=== PATIENT | male | born 1985 | race Caucasian/White ===

== ENCOUNTER 2022-02-05 09:28 | Observation (INO) ==
[2022-02-05] MEDS ORDERED: 0.9 % Sodium Chloride 1,000 ML IVC ONE (10:38)
[2022-02-05 11:03] LABS: Basophils % 0.1 %; Eosinophils % 0.1 %; Hematocrit 47.4 % (37.5-50.1); Immature Granulocytes % 0.4 % (0-4); Lymphocytes % 6.6 %; Mean Corpuscular HGB Conc 33.8 g/dL (31.6-35.5); Mean Corpuscular Volume 91.9 fL (83.0-100.0); Mean Platelet Volume 11.4 fL (9.4-12.4); Monocytes # 1.1 K/mcL (0.0-1.3); Monocytes % 7.1 %; Neutrophils # 13.6 K/mcL (1.6-8.9); Platelet Count 218 K/mcL (140-400); Red Blood Count 5.16 M/mcL (4.19-5.50); Segmented Neutrophils % 85.7 %; White Blood Count 15.9 K/mcL (4.3-11.1)
[2022-02-05 11:22] LABS: BUN/Creatinine Ratio 12 (6-26); Blood Urea Nitrogen 10 mg/dL (6-20); Carbon Dioxide 27 mEq/L (23-29); Chloride 102 mEq/L (98-107); Glucose 123 mg/dL (70-105); Osmolality,Calculated 284 (280-300); Potassium 3.6 mEq/L (3.5-5.1); Sodium 137 mEq/L (136-145); eGFR For African Americans > 60 (> 60); eGFR For Non-African Americans > 60 (> 60)
[2022-02-05] MEDS ORDERED: Iopamidol - 370 500 ML MLS IVP ONE (11:31)
[2022-02-05 11:53] LABS: Influenza A PCR Negative (Negative); Influenza B PCR Negative (Negative); Resp. Syncytial Virus PCR Negative (Negative); SARS-CoV-2 by PCR (In House) Negative (Negative)
[2022-02-05] MEDS ORDERED: Ampicillin/Sulbactam 3,000 MG in 0.9 % Sodium Chloride Mini Bag 100 ML IVPB ONE (13:39)
[2022-02-05] MEDS ORDERED: Dexamethasone Sodium Phos/PF 10 MG/ML VIAL IVP ONE (13:40)
[2022-02-05] MEDS ORDERED: Lidocaine/EPI 1:100k 1% 50 ML VIAL ONE (14:39)
[2022-02-05] MEDS ORDERED: *HR* Propofol 200 MG/20 ML VIAL IVP ONE ×2 (17:04→17:46)
[2022-02-05] MEDS ORDERED: *HR* FentaNYL (PF) 100 MCG/2 ML VIAL ONE ×2 (17:04→17:56)
[2022-02-05] MEDS ORDERED: *HR* Midazolam HCl 2 MG/2 ML VIAL ONE (17:04)
[2022-02-05] MEDS ORDERED: *HR* Succinylcholine 200 MG/10 ML VIAL IVP ONE (17:06)
[2022-02-05] MEDS ORDERED: Ondansetron 4 MG/2 ML VIAL ONE (17:06)
[2022-02-05] MEDS ORDERED: Lidocaine -MPF 2% 5 ML VIAL ONE (17:06)
[2022-02-05] MEDS ORDERED: Lidocaine HCL 4 ML Topical Solution (Laryng-O-Jet Kit Sterile Pak) TP ONE (17:06)
[2022-02-05] MEDS ORDERED: *HR* HYDROmorphone PF 0.5 MG/0.5 ML SYRINGE IVP PRN (17:07)
[2022-02-05] MEDS ORDERED: Ondansetron 4 MG/2 ML VIAL IVP PRN ×2 (17:07→19:59)
[2022-02-05] MEDS ORDERED: *HR* Rocuronium Bromide 50 MG/5 ML VIAL ONE (17:07)
[2022-02-05] MEDS ORDERED: *HR* FentaNYL (PF) 100 MCG/2 ML VIAL IVP PRN (17:07)
[2022-02-05] MEDS ORDERED: Ferric Subsulfate 8 GM TOPICAL ONE (17:25)
[2022-02-05] MEDS ORDERED: Dexmedetomidine HCl 400 MCG/100 ML MLS IVC ONE (17:29)
[2022-02-05] MEDS ORDERED: Albuterol 2.5 MG/3 ML NEBULIZER ONE (17:31)
[2022-02-05] MEDS ORDERED: Albuterol 2.5 MG/3 ML NEBULIZER IH ONE (17:33)
[2022-02-05] MEDS ORDERED: Acetaminophen IV 1,000 MG/100 ML BAG IVPB ONE ×2 (17:39→17:40)
[2022-02-05] MEDS ORDERED: Ketamine HCL *QUVA* 50mg (1mL) SYRINGE ONE (17:56)
[2022-02-05] MEDS ORDERED: Naloxone 0.4 MG/ML INJ IVP PRN (19:59)
[2022-02-05] MEDS ORDERED: *HR* HYDROcodone/Acet 5/325 mg TABLET PO PRN (19:59)
[2022-02-05] MEDS ORDERED: Ringers Solution, Lactated 1,000 ML IVC SCH (19:59)
[2022-02-05] MEDS: Ampicillin/Sulbactam 3,000 MG in 0.9 % Sodium Chloride Mini Bag 100 ML IVPB SCH (20:14)
[2022-02-05] MEDS: Dexamethasone Sodium Phos/PF 10 MG/ML VIAL IVP SCH (20:18)
[2022-02-05] MEDS ORDERED: ARIPiprazole 5 MG TABLET PO SCH (21:00)
[2022-02-06] MEDS: Ampicillin/Sulbactam 3,000 MG in 0.9 % Sodium Chloride Mini Bag 100 ML IVPB SCH ×2 (02:56→07:51)
[2022-02-06] MEDS: Dexamethasone Sodium Phos/PF 10 MG/ML VIAL IVP SCH (02:57)
[2022-02-06 04:06] VITALS: PULSE 80
[2022-02-06 07:09] VITALS: BP 132/85; TEMP 98.1; O2SAT 96
== END 2022-02-06 10:30 | disposition home or self-care (01) ==
LOC: EMEROOARM 09:28 → 3NENU 09:28
PROVIDERS: ADMIT Otolaryngology; ATTEND Otolaryngology